=== PATIENT | female | born 1990 | race Caucasian/White ===

== ENCOUNTER 2020-02-28 23:34 | Day surgery (SDC) | payer BC ==
[2020-02-29] MEDS ORDERED: hydrALAZINE 20 MG/ML VIAL SLOW IVP PRN (00:07)
--- NOTE | 2020-02-29 00:09 | PDOC.LDHP ---
Labor and Delivery H&P HPI: Pt of Dr Buckley CC: Possible CTX 30 yo G1 at 38 weeks 6 days here with irreg CTX, no VB, no LOF, good FM. No Fevers. Review of Systems: complete ROS performed and as per HPI Current gestational age (weeks): 38 (6 D) Dating criteria: last menstrual period Grav: 1 Current complications: none Abnormal US findings: No Past Medical History: HX arthrits, HX HSV (no sxs)..on Valtrex Current medications: pre- vitamins, other (Valtrex) Previous surgical history: none Allergies/Adverse Reactions: Allergies Allergy/AdvReac Type Severity Reaction Status Date / Time No Known Allergies Allergy Verified 02/28/20 23:45 Social history: none - Physical Exam Vital signs reviewed and normal: yes (133/73) General: NAD Heart: RRR Lungs: CTAB Abdomen: gravid Extremeties: no edema FHT: category 1 [place] contractions every: irregular - Vaginal Exam cm dilated: 1 Effacement: 50% Station: -1 - Assessment Latent labor at term (early term). Almost Full term. - Plan Plan: observation in L&D (FHTs reactive, reassurance given. OK for DC but return if CTX increase.)
[2020-02-29] MEDS ORDERED: Morphine 2 MG/ML SYRINGE IM SCH (00:15)
--- NOTE | 2020-03-01 03:25 | SS ---
DATE OF ADMISSION: 02/28/2020 DATE OF DISCHARGE: 02/29/2020 REGULAR PHYSICIAN: Franco Buckley DO, MS EVALUATING PHYSICIAN: Alessandro Kerns MD CHIEF COMPLAINT: Decreased movement. HISTORY OF PRESENT ILLNESS: Ms. Gil is a 30-year-old white G1, P0, with an estimated date of confinement of 03/07/2020, who presents complaining of not feeling her baby move as it has been over the last 24 hours. She was seen yesterday for labor check and was found to be 1 cm dilated and 50% effaced. She denies associated rupture of membranes or vaginal bleeding. Her care has been with Dr. Buckley. She has been on prophylactic Valtrex for history of genital herpes in the past. She currently denies prodromal symptoms or lesions. PAST MEDICAL HISTORY: Herpes as above and reactive arthritis. PAST SURGICAL HISTORY: Laparoscopic ovarian cyst management, tonsillectomy and adenoidectomy, and wisdom teeth extraction. CURRENT MEDICATIONS: vitamins and Valtrex. ALLERGIES: NO KNOWN ALLERGIES. SOCIAL HISTORY: Denies tobacco, alcohol, or drug use. FAMILY HISTORY: Unremarkable. REVIEW OF SYSTEMS: Denies nausea, vomiting, fever, chills, ruptured membranes, vaginal bleeding or vaginal lesions. PHYSICAL EXAMINATION: VITAL SIGNS: Vital signs are stable and she is afebrile. GENERAL: She is pleasant and in no distress. ABDOMEN: Soft, nontender, and gravid. PELVIC: Pelvic exam by the labor nurse shows the cervix to be 1 cm dilated, 90% effaced with the vertex at -1 station. heart rate tracing is reassuring with spontaneous accelerations. There are no decelerations. Mild contractions are seen every 5 minutes. ASSESSMENT: 1. A 39-week intrauterine . 2. Reassuring heart rate tracing tonight. 3. Latent phase labor, no evidence of active labor at this time. PLAN: The patient will be dismissed to home. The patient was given labor precautions and these were reviewed with her in detail. She was also told to keep herself hydrated at home. She voiced understanding of her discharge instructions and was sent home in good condition. Job ID: [id number] MTDD
== END 2020-02-29 00:30 | disposition home or self-care (01) ==
LOC: L&D/OP 23:34
PROVIDERS: ATTEND Obstetrics & Gynecology
DX: O36.8130 Decreased fetal movements, third trimester, not applicable or unspecified (principal); O47.1 False labor at or after 37 completed weeks of gestation; O98.313 Other infections with a predominantly sexual mode of transmission complicating pregnancy, third trimester; A60.00 Herpesviral infection of urogenital system, unspecified; Z3A.39 39 weeks gestation of pregnancy; Z79.899 Other long term (current) drug therapy

== ENCOUNTER 2020-02-29 22:23 | Day surgery (SDC) | payer BC ==
[2020-02-29 22:54] VITALS: BP 119/77; TEMP 98.5; BMI 36.6
[2020-02-29] MEDS ORDERED: hydrALAZINE 20 MG/ML VIAL SLOW IVP PRN (22:57)
== END 2020-02-29 22:57 | disposition home or self-care (01) ==
LOC: L&D/OP 22:23
PROVIDERS: ATTEND Obstetrics & Gynecology
DX: O36.8190 Decreased fetal movements, unspecified trimester, not applicable or unspecified (principal); O47.9 False labor, unspecified; Z3A.00 Weeks of gestation of pregnancy not specified; Z79.899 Other long term (current) drug therapy
CPT/HCPCS: 99282

== ENCOUNTER 2020-03-01 21:38 | Inpatient (IN) | payer BC ==
[~2020-03-01 21:38] MED LIST: Bupivacaine/Epinephrine 0.25% 30 ML VIAL ONE
[2020-03-01 22:01] VITALS: BMI 36.8
[2020-03-01] MEDS ORDERED: Ibuprofen 800 MG TAB PO PRN (22:46)
[2020-03-01] MEDS ORDERED: Promethazine HCl 25 MG/ML VIAL IM PRN (22:46)
[2020-03-01] MEDS ORDERED: Butorphanol Tartrate 1 MG/ML VIAL SLOW IVP PRN (22:46)
[2020-03-01] MEDS ORDERED: HYDROcodone/Acetaminophen 5/325 mg Tablet PO PRN (22:46)
[2020-03-01] MEDS ORDERED: hydrALAZINE 20 MG/ML VIAL SLOW IVP PRN (22:46)
[2020-03-01] MEDS ORDERED: Methylergonovine 0.2 MG/ML VIAL IM PRN (22:46)
[2020-03-01] MEDS ORDERED: Lidocaine 1% (PF) 30 ML VIAL SC PRN (22:46)
[2020-03-01] MEDS ORDERED: Ondansetron PF 4 MG/2 ML Vial IVP PRN (22:46)
[2020-03-01] MEDS ORDERED: Carboprost 250 MCG/ML AMP IM PRN (22:46)
[2020-03-01] MEDS ORDERED: Diphenoxylate HCl/Atropine Tablet PO PRN (22:46)
[2020-03-01] MEDS ORDERED: Acetaminophen 500 MG TAB PO PRN (22:46)
--- NOTE | 2020-03-01 22:50 | PDOC.LDHP ---
Labor and Delivery H&P Chief complaint: contractions HPI: 30yo at 39w1d by LMP here with painful ctx over last 3d, worsened overnight , now q3-5min. No LOF VB. Good FM. Current gestational age (weeks): 39 Due date: 03/07/20 Dating criteria: last menstrual period Grav: 1 Para: 0 Current complications: none Abnormal US findings: No Past Medical History: denies Current medications: pre-janie vitamins Previous surgical history: none Allergies/Adverse Reactions: Allergies Allergy/AdvReac Type Severity Reaction Status Date / Time No Known Allergies Allergy Verified 02/29/20 22:40 Social history: none - Physical Exam Vital signs reviewed and normal: yes General: NAD Heart: RRR Lungs: CTAB Abdomen: gravid Extremeties: no edema FHT: category 1 [place] contractions every: 3-5min - Vaginal Exam cm dilated: 2 Effacement: 90% Station: 0 - OB Labs RH: positive Antibody Screen: negative HIV: negative RPR: negative HEPSAg: negative 1 hour GCT: negative GBS: negative Urine drug screen: negative Rubella: immune - Assessment L&D Assessment: term patient in labor - Plan Plan: admit to L&D, labor augmentation if indicated, informed consent obtained, anesthesia consult for pain management
[2020-03-01] MEDS ORDERED: NS w/ Oxytocin 10 units 500 ML IV SCH (23:00)
[2020-03-01] MEDS: Lactated Ringer's 1,000 ML IV SCH (23:08)
[2020-03-01 23:27] LABS: Hemoglobin 12.6 g/dL (12.0-16.0); Mean Corpuscular HGB CONC 32.7 g/dL (32.0-36.0); Mean Corpuscular Hemoglobin 29.1 pg (27.0-31.0); Mean Corpuscular Volume 88.8 fL (78.0-98.0); Mean Platelet Volume 7.5 fL (7.4-10.4); Platelet Count 334 thou/uL (130-400); RBC Distribution Width 12.9 % (11.5-14.5); Red Blood Cell (RBC) Count 4.34 mill/uL (4.20-5.40); White Blood Cell (WBC) Count 11.5 thou/uL (4.8-10.8)
[2020-03-01] MEDS ORDERED: Fentanyl 4 mcg/Bup 0.1% Cadd 100 ML ONE (23:47)
[2020-03-02 00:05] LABS: HBSAg Index 0.19 S/CO (0-0.99); Hep B Surf Ag Non-Reactive S/CO (NonReactive)
[2020-03-02 00:08] LABS: Syphilis Antibody Nonreactive (Nonreactive); Syphilis Antibody Index 0.03 S/CO (<1.00 Non-Reactive)
[2020-03-02] MEDS ORDERED: Promethazine HCl 25 MG/ML VIAL IM PRN (00:48)
[2020-03-02] MEDS ORDERED: diphenhydrAMINE 50 MG/ML VIAL IVP PRN (00:48)
[2020-03-02] MEDS ORDERED: Naloxone HCl 0.4 mg/ml Vial IVP PRN ×2 (00:48)
[2020-03-02] MEDS ORDERED: EPHEDRINE 25 MG/5 ML SYRINGE SLOW IVP PRN (00:48)
[2020-03-02] MEDS ORDERED: Acetaminophen 325 MG TAB PO PRN (00:48)
[2020-03-02] MEDS ORDERED: Ondansetron PF 4 MG/2 ML Vial IVP PRN ×2 (00:48→10:42)
[2020-03-02] MEDS ORDERED: Lactated Ringer's 500 ML IV PRN (00:48)
[2020-03-02] MEDS: Lactated Ringer's 1,000 ML IV SCH (00:54)
[2020-03-02] MEDS ORDERED: Communication Order-Pharmacy FS SCH (01:00)
[2020-03-02] MEDS ORDERED: Fentanyl 4 mcg/Bupivacaine 0.1% Cassette 100 ML EPIDURAL SCH (01:00)
[2020-03-02] MEDS ORDERED: Fentanyl 4 mcg/Bup 0.1% Cadd 100 ML ONE (07:46)
--- NOTE | 2020-03-02 08:06 | PDOC.LDPN ---
Labor & Delivery Progress Note - Subjective Subjective: comfortable - Objective Vital signs reviewed and normal: yes General: resting Dilation: 5 Effacement: 100% FHT: category 1 [place] contractions every: 4 Other exam findings: srom clear - Assessment (1) 39 weeks gestation of Code(s): Z3A.39 - 39 WEEKS GESTATION OF Current Visit: Yes Status : Acute (2) Labor abnormal Code(s): O62.9 - ABNORMALITY OF FORCES OF LABOR, UNSPECIFIED Current Visit: Yes Status: Acute Plan: continue plan of care
[2020-03-02] MEDS ORDERED: hydrALAZINE 20 MG/ML VIAL SLOW IVP PRN ×2 (09:04→10:42)
[2020-03-02] MEDS: NS / Oxytocin 40 units/1000ml 1,000 ML IV PRN ×2 (09:31→10:42)
[2020-03-02] MEDS ORDERED: Misoprostol 200 MCG TAB ONE (09:43)
[2020-03-02] MEDS: Misoprostol 200 MCG TAB ONE ×2 (09:44→10:24)
[2020-03-02] MEDS ORDERED: Tranexamic Acid 1,000 MG/10 ML VIAL ONE (09:48)
--- NOTE | 2020-03-02 09:55 | PDOC.OPDEL ---
OB Operative/Delivery Note Delivery Dr/Surgeon: Marcio Pre-Delivery Diagnosis: active labor Procedure/Post Delivery Dx: spontaneous vaginal delivery Weeks gestation: 39 Anesthesia: local - Findings A Sex: female - Additional Findings/Plan Placenta delivered: spontaneous Repaired Obstetrical Laceration: periurethral Estimated blood loss: 540ml Compilations/Other Findings: uterine atony after placental delivery- relived w pitocin, methergine and cytotec w BM compression. TXA 1 gm IV placed. Post delivery plan: routine recovery
[2020-03-02] MEDS ORDERED: TRANEXAMIC ACID IVPB SCH (10:00)
[2020-03-02] MEDS ORDERED: Misoprostol 200 MCG TAB PR SCH (10:00)
[2020-03-02] MEDS ORDERED: SODIUM CHLORIDE 0.9% IVPB SCH (10:00)
[2020-03-02] MEDS ORDERED: Bisacodyl 10 MG SUPP PR PRN (10:42)
[2020-03-02] MEDS ORDERED: Preparation H Ointment 28 GM TUBE PR PRN (10:42)
[2020-03-02] MEDS ORDERED: HYDROcodone/Acetaminophen 5/325 mg Tablet PO PRN ×2 (10:42)
[2020-03-02] MEDS ORDERED: Lanolin Ointment 7 GM TUBE TOP PRN (10:42)
[2020-03-02] MEDS ORDERED: Benzocaine-Menthol 82.5 ML CAN TOP PRN (10:42)
[2020-03-02] MEDS ORDERED: diphenhydrAMINE 25 MG CAP PO PRN (10:42)
[2020-03-02] MEDS ORDERED: NS / Oxytocin 40 units/1000ml 1,000 ML IV SCH (10:42)
[2020-03-02] MEDS ORDERED: Milk Of Magnesia 30 ML UDCUP PO PRN (10:42)
[2020-03-02] MEDS: Ibuprofen 800 MG TAB PO SCH ×2 (11:27→20:31)
[2020-03-02] MEDS: Ferrous Sulfate 325 MG TAB PO SCH (18:51)
[2020-03-02] MEDS: Docusate Calcium (SURFAK) 240 MG CAP PO SCH (20:31)
[2020-03-03] MEDS: Ibuprofen 800 MG TAB PO SCH ×3 (05:48→21:24)
[2020-03-03 07:00] LABS: Hemoglobin 9.7 g/dL (12.0-16.0)
--- NOTE | 2020-03-03 08:21 | PDOC.PP ---
Post Progress Note Post Day #: 1 Subjective: normal lochia, sore but pain controlled, pumping, resting PO intake tolerated: yes Flatus: yes Ambulation: yes Vital Signs (12 hours) Temp Pulse Resp BP Pulse Ox 03/03/20 07:43 98.3 F 74 20 112/65 96 03/03/20 05:48 98.9 F 86 18 117/63 98 03/03/20 00:12 98.4 F 87 18 116/60 98 Weight Weight 235 lb - Physical Examination General: NAD Respiratory: non-labored breathing Skin: no rash Neurological: no gross focal deficits Psychiatric: A&Ox3, normal affect Result Diagrams: 03/03/20 06:31 Additional Labs: Post Labs Blood Type A POSITIVE 03/02/20 01:21 Hep Bs Antigen Non-Reactive S/CO (NonReactive) 03/01/20 23:17 (1) 39 weeks gestation of Code(s): Z3A.39 - 39 WEEKS GESTATION OF Status: Acute (2) Labor abnormal Code(s): O62.9 - ABNORMALITY OF FORCES OF LABOR, UNSPECIFIED Status: Acute - Assessment/Plan PPD1 doing well, plans to stay another night for help/rest. Plan for DC tomorrow.
[2020-03-03] MEDS: Docusate Calcium (SURFAK) 240 MG CAP PO SCH ×2 (08:22→21:24)
[2020-03-03] MEDS: Ferrous Sulfate 325 MG TAB PO SCH ×2 (08:22→21:24)
[2020-03-03] MEDS: Prenatal Vitamin 1 TAB PO SCH (08:22)
[2020-03-03] MEDS ORDERED: Adacel (T-DAP) 0.5 ML SYRINGE IM ONE (10:42)
[2020-03-04] MEDS: Ibuprofen 800 MG TAB PO SCH ×2 (06:43→09:16)
[2020-03-04 07:40] VITALS: BP 104/60; TEMP 97.8
--- NOTE | 2020-03-04 08:13 | PDOC.PP ---
Post Progress Note Post Day #: 2 Subjective: doing well, nursing well, minimal lochia, pain controlled w IBU, no sx of anemia PO intake tolerated: yes Flatus: yes Ambulation: yes Vital Signs (12 hours) Temp Pulse Resp BP Pulse Ox 03/04/20 07:39 97.8 F 72 20 104/60 97 Weight Weight 235 lb - Physical Examination General: NAD Respiratory: non-labored breathing Abdominal: no distention Skin: no rash Neurological: no gross focal deficits Psychiatric: normal affect Result Diagrams: 03/03/20 06:31 Additional Labs: Post Labs Blood Type A POSITIVE 03/02/20 01:21 Hep Bs Antigen Non-Reactive S/CO (NonReactive) 03/01/20 23:17 (1) 39 weeks gestation of Code(s): Z3A.39 - 39 WEEKS GESTATION OF Status: Acute (2) Labor abnormal Code(s): O62.9 - ABNORMALITY OF FORCES OF LABOR, UNSPECIFIED Status: Acute (3) Anemia affecting Code(s): O99.019 - ANEMIA COMPLICATING , UNSPECIFIED TRIMESTER Status : Acute (4) Uterine atony Code(s): O62.2 - OTHER UTERINE INERTIA Status: Acute - Assessment/Plan PPD2 doing well, sp w uterine atony relieved w pitocin, uterotonics and TXA. Plan for iron on DC.
[2020-03-04] MEDS: Prenatal Vitamin 1 TAB PO SCH (09:16)
[2020-03-04] MEDS: Docusate Calcium (SURFAK) 240 MG CAP PO SCH (09:16)
[2020-03-04] MEDS: Ferrous Sulfate 325 MG TAB PO SCH (09:16)
--- NOTE | 2020-03-05 08:42 | PQF ---
Rosalba Gil JAMIE DO [id number] CLINICAL DOCUMENTATION CLARIFICATION FORM: POST DISCHARGE Addendum to original discharge summary date: ____ Late entry note date: __ DATE: 03/05/2020 ATTN: Franco Gutierrez Please exercise your independent, professional judgment in responding to the clarification form. Clinical indicators are provided on the bottom of this form for your review Please check appropriate box(s): [ ] Acute blood loss anemia [ ] Post-op anemia related to acute blood loss [ ] Chronic Anemia related to [ ] Other diagnosis ____uterine atony [ ] Unable to determine In addition, please specify: Present on Admission (POA): [ ] Yes [ ] No [ ] Unable to determine For continuity of documentation, please document condition throughout progress notes and discharge summary. Thank You. CLINICAL INDICATORS - SIGNS / SYMPTOMS / LABS Laboratory 03/01 RBC 4.34, Hgb 4.34, Hct 38.6 Laboratory 03/03 Hgb 9.7, Hct 28.4 Vital signs / BP 120/68, Pulse 102, Temp 99.3, Resp 18 L&D note p1 5/ Periurethral laceration L&D note p1 5/4 Estimated blood loss 540 ml PN p1 5/6 No sx of Anemia PN p1 5/6 Anemia affecting RISK FACTORS PN p1 5/3 Labor abnormality L&D note p1 5/4 39 weeks of gestation L&D note p1 5/4 Uterine atony TREATMENTS: MAR 5/3 IV Lactacted Ringer 1L MAR 5/4 Ferrous Sulfate 325 mg oral MAR 5/4 IV Tranexamic Acid 1mg Laboratory monitoring PN p1 5/6 Plan Iron on DC (This form is maintained as a part of the permanent medical record) 2014 [employer]. All Rights Reserved [email or web address]
== END 2020-03-04 12:30 | disposition home or self-care (01) | DRG 807 ==
LOC: L&D/OP 21:38 → L&D 22:46 → 3SW 03-02 12:22
PROVIDERS: ADMIT Obstetrics & Gynecology; ATTEND Obstetrics & Gynecology
PROC: 10E0XZZ Delivery of Products of Conception, External Approach (ICD-10-PCS; principal; 2020-03-02)
PROC: 0UQMXZZ Repair Vulva, External Approach (ICD-10-PCS; 2020-03-02)
DX: O62.9 Abnormality of forces of labor, unspecified (principal); Z37.0 Single live birth; Z3A.39 39 weeks gestation of pregnancy; O71.82 Other specified trauma to perineum and vulva; O62.2 Other uterine inertia; O99.02 Anemia complicating childbirth; D64.9 Anemia, unspecified
CPT/HCPCS: 36415; 51702; 85014; 85018; 85027; 86780; 86850; 86900; 86901; 87340; 99282; 99285; J2001; J2210; J2405; J2590